=== PATIENT | female | born 1995 | race Caucasian/White ===

== ENCOUNTER 2017-03-10 18:50 | Outpatient (CLI) | payer MEDICARE | END 2017-03-10 20:06 | disposition home or self-care (01) | LOC: GENOP 18:50 | DX: O42.92 Full-term premature rupture of membranes, unspecified as to length of time between rupture and onset of labor (principal); Z3A.38 38 weeks gestation of pregnancy | CPT/HCPCS: 83518; G0463 ==

== ENCOUNTER 2017-03-13 06:12 | Inpatient (IN) | payer MEDICARE ==
[~2017-03-13] VITALS: Ht 170.2 cm; Wt 96.2 kg
[2017-03-14 03:27] LABS: HEMOGLOBIN 10.6 gm/dl (12.3-15.3)
== END 2017-03-15 14:10 | disposition home or self-care (01) | DRG 766 ==
LOC: OB 06:12
PROVIDERS: ADMIT Obstetrics & Gynecology
PROC: 3E0R3CZ (ICD-10-PCS; 2017-03-13)
PROC: 3E0234Z Introduction of Serum, Toxoid and Vaccine into Muscle, Percutaneous Approach (ICD-10-PCS; 2017-03-13)
PROC: 10D00Z1 Extraction of Products of Conception, Low, Open Approach (ICD-10-PCS; principal; 2017-03-13 08:30)
DX: O34.219 Maternal care for unspecified type scar from previous cesarean delivery (principal); N85.8 Other specified noninflammatory disorders of uterus; O99.824 Streptococcus B carrier state complicating childbirth; O99.334 Smoking (tobacco) complicating childbirth; F17.210 Nicotine dependence, cigarettes, uncomplicated; Z3A.39 39 weeks gestation of pregnancy; Z37.0 Single live birth; O99.52 Diseases of the respiratory system complicating childbirth; J45.909 Unspecified asthma, uncomplicated; O99.89 Other specified diseases and conditions complicating pregnancy, childbirth and the puerperium; M54.9 Dorsalgia, unspecified; O99.214 Obesity complicating childbirth; E66.9 Obesity, unspecified; Z68.33 Body mass index [BMI] 33.0-33.9, adult; Z23 Encounter for immunization; Z87.440 Personal history of urinary (tract) infections; Z79.899 Other long term (current) drug therapy; Z82.79 Family history of other congenital malformations, deformations and chromosomal abnormalities; Z82.49 Family history of ischemic heart disease and other diseases of the circulatory system
CPT/HCPCS: 36415; 36600; 81001; 82800; 83518; 85014; 85018; 85025; 90715; C9113; G0463; J0690; J2270; J2405; J2590; J2765; J7120

== ENCOUNTER 2021-08-07 17:50 | Emergency (ER) | payer OTHER ==
[~2021-08-07 17:50] MED LIST: CYCLOBENZAPRINE10 MG PO; IBUPROFEN800 MG PO
[2021-08-07] MEDS ORDERED: IBUPROFEN600 MG PO (20:34)
== END 2021-08-07 21:07 | disposition home or self-care (01) ==
LOC: ER1 17:50
DX: S90.32XA Contusion of left foot, initial encounter (principal); F17.210 Nicotine dependence, cigarettes, uncomplicated; W01.10XA Fall on same level from slipping, tripping and stumbling with subsequent striking against unspecified object, initial encounter; Y92.89 Other specified places as the place of occurrence of the external cause; Y99.0 Civilian activity done for income or pay
CPT/HCPCS: 73630; 99283